=== PATIENT | male | born 1945 | race Caucasian/White ===

== ENCOUNTER 2019-10-04 21:23 | Emergency (ER) | payer MEDICARE, OTHER ==
--- NOTE | 2019-10-04 21:32 | ED Physician Documentation ---
General Adult - HISTORIAN Historian: patient - HPI Stated Complaint: unable to urinate Chief Complaint: General Adult Additional Information: Patient presents to ED with complaints of unable to urinated since 0700. Patient also reports constipation. This morning he used digital dis-impaction to aleviate his constipation. Since that time he has been unable to urinate. Onset: hours (12) Timing: still present Severity: moderate - ROS CONST: denies: fever EYES/ENT: denies: problems with vision CVS/RESP: denies: chest pain, shortness of breath GI/: problems urinating, other (constipation). denies: vomiting, nausea MS/SKIN/LYMPH: denies: leg swelling NEURO/PSYCH: denies: headache - PAST HX Past History: none Other History: diabetes Type 2, other (Prostates cancer) Surgeries/Procedures: other (CABG) Allergies/Adverse Reactions: Allergies Allergy/AdvReac Type Severity Reaction Status Date / Time No Known Allergies Allergy Verified 10/04/19 21:42 Home Medications: Ambulatory Orders Medication Instructions Recorded Aspirin [Aspirin EC] 81 mg PO DAILY 10/04/19 Atorvastatin Calcium 40 mg PO DAILY 10/04/19 Calcium Carbonate/Vitamin D3 500 mg PO DAILY 10/04/19 [Calcium 500 + Vit D 200 Tablet] Insulin Aspart [Novolog] 4 units SQ AM 10/04/19 Insulin Aspart [Novolog] 6 units SQ PM 10/04/19 Insulin Glargine,Hum.rec.anlog 20 units SQ HS 10/04/19 [Lantus] Metformin HCl 1,000 mg PO BID 10/04/19 Metoprolol Tartrate [Lopressor] 12.5 mg PO BID 10/04/19 - SOCIAL HX Smoking History: non-smoker Alcohol Use: none Drug Use: none - FAMILY HX Family History: No - REVIEWED ASSESSMENTS Nursing Assessment Reviewed: Yes Vitals Reviewed: Yes ED Results Lab/Radiology - Radiology Radiology Impressions: Report Submission Date: Oct 04, 2019 10:21:03 PM EDITORIAL SPECIALIST Patient Study Name: ANA DACOSTA Date: Oct 04, 2019 9:30:17 PM EDITORIAL SPECIALIST Modality Type: DX Gender: M Description: ABD SERIES PA CHEST : 41 Institution: [facility] Physician: DI TOLEDO ABD SERIES PA CHEST History: abd pain, unable to urinate (Hx) / Findings: The heart size is normal. The lungs are clear. No pleural effusion or pneumothorax is identified. There is an acute posterior lateral 5th rib fracture present with mild displacement. The bowel gas pattern is normal. No free air is present. Mild amount of retained stool is present. No abnormal intra-abdominal calcifications are present. Impression: 1. No acute pulmonary disease. 2. Right acute 5th rib fracture. 2. Mild amount of retained stool. Electronically signed on Oct 04, 2019 10:21:03 PM EDITORIAL SPECIALIST by: Elver Perez General Adult Physical Exam - PHYSICAL EXAM GENERAL APPEARANCE: no distress EENT: BRANDT NECK: thyroid normal RESPIRATORY: no resp distress, breath sounds normal CVS: reg rate & rhythm, heart sounds normal ABDOMEN: non-tender, decreased BS, other (distended) BACK: normal inspection, no CVA tenderness SKIN: warm/dry EXTREMITIES: non-tender, no edema NEURO: oriented X3, mood/affect nml Discharge Clincal Impression: Acute urinary retention Constipation Qualifiers: Constipation type: unspecified constipation type Qualified Code(s): K59.00 - Constipation, unspecified Referrals: Primary Doctor,No [Primary Care Provider] - 2 Days Additional Instructions: 1. Senokot and colace daily to maintain daily bowel movements 2. Refrain from digital rectal stool removal. Use suppositories (dulcolax) and/or enemas (fleets) to remove hard stools from rectum 3. Keep weldon catheter in place until re-evaluated by PCP 4. Take flomax daily for next 7 days 5. Follow up with PCP as soon as possible. Discuss removal of weldon catheter. 6. Return to ER for new or worsening symptoms. Condition: Stable Disposition: 01 HOME, SELF-CARE Decision to Admit: NO Date of Decison to Admit: 10/04/19 Decision Time: 22:42
--- NOTE | 2019-10-04 22:25 | Diagnostic Imaging Report ---
PATIENT MR#: [id number] PATIENT PATIENT NAME: ANA DACOSTA DATE OF : 1945 REFERRING PHYSICIAN: Hayley Miller EXAM DATE: 10/04/2019 ACCESSION NUMBER: [id number] EXAM DESCRIPTION: ABD SERIES PA CHEST ABD SERIES PA CHEST History: abd pain, unable to urinate (Hx) / Findings: The heart size is normal. The lungs are clear. No pleural effusion or pneumothorax is id entified. There is an acute posterior lateral 5th rib fracture present with mild displacement. The bowel gas pattern is normal. No free air is present. Mild amount of retained stool is present. No abnormal intra-abdominal calcifications are present. Impression: 1. No acute pulmonary disease. 2. Right acute 5th rib fracture. 2. Mild amount of retained stool. Read by: Dr. Elver Perez Transcribed by: Transcribed Date: Electronically signed by: Dr. Elver Perez Date signed: 10/04/2019 10:25:03 PM
[2019-10-04] MEDS: TAMSULOSIN HCL 0.4 MG CAP.ER.24H PO ONE (22:44)
[2019-10-04] MEDS: HYDROcodone /APAP 5/325 1 EACH TABLET PO ONE (22:44)
[2019-10-04 23:09] VITALS: BP 132/74
[2019-10-05 06:27] LABS: APPEARANCE,URINE CLEAR (CLEAR); COLOR,URINE YELLOW (YELLOW); OCCULT BLOOD,URINE NEGATIVE (NEGATIVE)
[2019-10-05 06:28] LABS: PH URINE 5.5 (5.0 - 8.0); UROBILINOGEN URINE 0.2 Eu (0.2-1.0)
== END 2019-10-04 22:48 | disposition home or self-care (01) ==
LOC: ED 21:23
DX: K59.00 Constipation, unspecified (principal); R33.9 Retention of urine, unspecified
CPT/HCPCS: 51702; 74022; 81002; 99283; A9270